=== PATIENT | female | born 1975 | race Caucasian/White ===

== ENCOUNTER → 2021-11-30 | Outpatient (CLI) | payer OTHER ==
--- NOTE | 2021-11-30 15:51 | NM ---
EXAMINATION TYPE: NM myocardial SPECT single DATE OF EXAM: 11/30/2021 COMPARISON: NONE HISTORY: 46-year-old female I51.7 - Cardiomegaly, R06.00 - Dyspnea, R06.1 - Stridor, I10 - Essential HTN. Technique: AND Following administration of 9.8 mCi Tc 99m sestamibi, images are obtained after the in jection. DOUBLE CORNER CUTTER'S NOTES: Webmaster canceled stress test due to patient's hypertensi ve state. Resting images only. Once blood pressure is better controlled, patient can be scheduled aga in. FINDINGS: On rest images, there is a large anterior wall defect noted. Prominent attenuation artifact versus ol d infarct are both possibilities. Recommend further clinical correlation. Gated analysis shows partial augmentation of the anterior wall. Estimated LVEF on rest is 32%. IMPRESSION: 1. Only the resting portion of the exam is performed. Cardiology canceled the stress portion due to h ypertensive state. 2. Diminished LVEF at rest; measured at 32%. Clinically correlate. 3. Large anterior wall defect. Differential considerations include prominent breast and chest wall at tenuation artifact versus area of old infarct. Further clinical correlation recommended.
== END | disposition home or self-care (01) ==
LOC: RADNMMAIN 08:45
PROVIDERS: ATTEND Family Medicine
DX: R06.00 Dyspnea, unspecified (principal); R06.1 Stridor; I10 Essential (primary) hypertension
CPT/HCPCS: 78451; A9500

== ENCOUNTER → 2023-05-10 | Outpatient (CLI) | payer OTHER ==
[2023-05-10 12:07] LABS: ALT 47 U/L (4-34); AST 36 U/L (14-36); African American GFR (CKD) >90 (>60 ml/min/1.73 sqM); Albumin 3.9 g/dL (3.5-5.0); Albumin/Globulin Ratio 1.4; Alkaline Phosphatase 76 U/L (38-126); Anion Gap 8 mmol/L; Bilirubin,Unconjugated 0.5 mg/dL (0.0-1.1); Blood Urea Nitrogen 18 mg/dL (7-17); Calcium 8.7 mg/dL (8.4-10.2); Carbon Dioxide 26 mmol/L (22-30); Chloride 103 mmol/L (98-107); Globulin 2.7 g/dL; Glucose 94 mg/dL (74-99); Non-African American GFR(CKD) >90 (>60 ml/min/1.73 sqM); Potassium 4.8 mmol/L (3.5-5.1); Sodium 137 mmol/L (137-145); Total Bilirubin 0.6 mg/dL (0.2-1.3); Total Protein 6.6 g/dL (6.3-8.2)
[2023-05-10 12:13] LABS: NT-Pro-B-Type Natriuretic Pept 2660 pg/mL
[2023-05-10 17:16] LABS: HCT 46.5 % (37.2-46.3); HGB 14.9 g/dL (12.0-15.0); MCH 27.5 pg (27.0-32.0); MCV 85.8 FL (80.0-97.0); Mean Platelet Volume 11.4 FL (9.5-12.2); NRBC Per 100 WBC 0 X 10*3/uL (0.00-0.01); Platelet Count 215 X 10*3/uL (140-440); RBC 5.42 X 10*6/uL (4.10-5.20); RDW 17.2 % (11.5-14.5); WBC 6.28 X 10*3/uL (4.50-10.00)
[2023-05-11 01:38] LABS: Chol/HDL Ratio 2.95 Ratio; LDL Cholesterol,Calculated 58.9 mg/dL (0.0-131.0); VLDL Calculation 17.78 mg/dL (5.00-40.00)
== END | disposition home or self-care (01) ==
LOC: LABWHC1 10:34
PROVIDERS: ATTEND Internal Medicine Cardiovascular Disease
DX: I11.0 Hypertensive heart disease with heart failure (principal); I50.20 Unspecified systolic (congestive) heart failure; I34.0 Nonrheumatic mitral (valve) insufficiency; E78.5 Hyperlipidemia, unspecified
CPT/HCPCS: 36415; 80053; 80061; 82248; 83880; 85027